=== PATIENT | female | born 1970 | race Caucasian/White ===

== ENCOUNTER → 2018-08-24 | Outpatient (CLI) | payer BC ==
[~2018-08-24] MED LIST: BUTA-234 PO; CALC-80 PO; DULO60CA6 PO; GABA-490 PO; HYDR-3063 PO; MELO-195 PO; TIZA4TAB55 PO; TOPI100T PO
--- NOTE | 2018-08-25 15:22 | Diagnostic Imaging Report ---
INDICATION: Routine screening. COMPARISON: 06/16/2017 and 05/27/2016. TECHNIQUE: 2D and 3D bilateral screening mammography was performed with CAD. FINDINGS: Scattered fibroglandular densities are identified bilaterally. Bilateral breast implants are again noted. The implant contours appear smooth. No mass or malignant appearing microcalcifications are seen. The axillae are unremarkable. IMPRESSION: No mammographic features suspicious for malignancy are identified. ACR BI-RADS Category 2: Benign findings. Result letter will be mailed to the patient. Note: At least 10% of breast cancer is not imaged by mammography. Dictated by: Dictated on workstation # [id number]
== END ==
LOC: RAD 08:58
PROVIDERS: ATTEND Obstetrics & Gynecology
DX: Z12.31 Encounter for screening mammogram for malignant neoplasm of breast (principal); Z01.419 Encounter for gynecological examination (general) (routine) without abnormal findings
CPT/HCPCS: 77067

== ENCOUNTER 2022-12-18 05:30 | Outpatient (CLI) | payer OTHER ==
[~2022-12-18] VITALS: Ht 167.6 cm; Wt 68.5 kg
[2022-12-18] MEDS ORDERED: MULT-593 PO (10:25)
[2022-12-18] MEDS ORDERED: CYAN-23 PO (10:25)
[2022-12-18] MEDS ORDERED: ROSU10TA28 PO (10:25)
[2022-12-18] MEDS ORDERED: AMPH20TA2 PO (10:25)
[2022-12-18] MEDS ORDERED: CLN.1T PO (10:25)
[2022-12-18] MEDS ORDERED: MAGN400C PO (10:25)
[2022-12-18] MEDS ORDERED: BUPR100T7 PO (10:25)
== END 2022-12-18 10:26 | disposition home or self-care (01) ==
LOC: PREOP 05:30
PROVIDERS: ATTEND Surgery
DX: Z01.818 Encounter for other preprocedural examination (principal)

== ENCOUNTER 2022-12-30 06:56 | Day surgery (SDC) | payer BC, OTHER ==
[~2022-12-30] VITALS: Ht 167 cm; Wt 68.5 kg
[~2022-12-30 06:56] MED LIST changes: +AMPH20TA2 PO; +BUPR100T7 PO; +CLN.1T PO; +CYAN-23 PO; +MAGN400C PO; +MULT-593 PO; +ROSU10TA28 PO
[2022-12-30] MEDS ORDERED: LACTATED RINGERS 1,000 ML 1,000 ML IV STA (07:03)
[2022-12-30 07:17] VITALS: BP 132/93
--- NOTE | 2022-12-30 08:03 | Progress Note-Post Operative ---
Post-Operative Progess Note Surgeon (s)/Absorption And Adsorption Engineer (s) Surgeon BENJI ANDERSON DO Absorption And Adsorption Engineer: n/a Pre-Operative Diagnosis Hx of colon polyps Post-Operative Diagnosis Colonoscopy Procedure & Operative Findings Date of Procedure 12/30/22 Procedure Performed/Findings Colonoscopy Anesthesia Type per ICE CREAM FREEZER Estimated Blood Loss Estimated blood loss (mL): none Specimens/Packing Specimens Removed none BENJI ANDERSON DO Dec 30, 2022 08:03
[2022-12-30 08:05] VITALS: BP 141/90
--- NOTE | 2022-12-30 08:05 | Discharge Inst-Simple/Standard ---
Discharge Inst-Standard Patient Instructions/Follow Up Plan of Care/Instructions/FU: 5 yr follow up for colonscopy, any issues before that be seen at that time Activity as Tolerated: Yes Discharge Diet: Regular Diet BENJI ANDERSON DO Dec 30, 2022 08:05
[2022-12-30 08:10] VITALS: BP 137/90
[2022-12-30 08:15] VITALS: BP 127/78
[2022-12-30 08:31] VITALS: BP 127/78
--- NOTE | 2022-12-30 11:42 | Anesthesia-General Post-Op ---
MAC Patient Condition Mental Status/LOC: Same as Preop Cardiovascular: Satisfactory Nausea/Vomiting: Absent Respiratory: Satisfactory Pain: Controlled Complications: Absent Post Op Complications Complications None Follow Up Care/Instructions Patient Instructions None needed. Anesthesiology Discharge Order Discharge Order Patient is doing well, no complaints, stable vital signs, no apparent adverse anesthesia problems. No complications reported per nursing. DEWAYNE GOLDSTEIN CRNA Dec 30, 2022 11:42
--- NOTE | 2022-12-30 13:13 | OPERATIVE REPORT ---
DATE OF SERVICE: 12/30/2022 PREOPERATIVE DIAGNOSIS: History of polyps. POSTOPERATIVE DIAGNOSIS: Normal colon. PROCEDURE: Colonoscopy. SURGEON: Benji Pierce DO ANESTHESIA: Per APPLICATIONS PROCESSOR. ESTIMATED BLOOD LOSS: None. COMPLICATIONS: None. INDICATIONS: The patient is a 52-year-old female, needing screening colonoscopy. She understands risks and benefits of procedure and wishes to proceed. Consent was signed in chart. DESCRIPTION OF PROCEDURE: The patient was taken to the endoscopy suite, placed in left lateral recumbent position. Timeout was performed. Digital rectal exam was performed. No palpable polyps, masses or ulcerations. Scope was inserted in the rectum, all the way to the cecum with minimal difficulty. Prep was adequate. Scope was slowly retracted back. No polyps, masses or ulcerations within the cecum, ascending, transverse, descending and sigmoid colon. Once in the rectum, scope was retroflexed, noting no other pathology. Scope was returned to its normal position, slowly withdrawn until completely removed. The patient tolerated the procedure well without any complications, taken to recovery room in stable condition. RECOMMENDATIONS: The patient will need repeat colonoscopy in 5 years. Any issues before that, she will be seen at that time. Repeat colonoscopy in 5 years due to history of polyps. Job ID: [id number] DocumentID: [id number] Dictated Date: 12/30/2022 08:03:19 Evaporator Repairer Date: 12/30/2022 13:11:00 Dictated By: BENJI PIERCE DO
== END 2022-12-30 08:31 | disposition home or self-care (01) ==
LOC: ENDO 06:56
PROVIDERS: ATTEND Surgery
DX: Z12.11 Encounter for screening for malignant neoplasm of colon (principal); F17.290 Nicotine dependence, other tobacco product, uncomplicated; Z86.010 Personal history of colon polyps